=== PATIENT | male | born 1980 | race Caucasian/White ===

== ENCOUNTER 2019-10-22 12:52 | Emergency (ER) | payer OTHER ==
[~2019-10-22] VITALS: Ht 190.5 cm; Wt 100.2 kg
[2019-10-22] MEDS ORDERED: GLUCOSAMINE &1 EACH PO (13:26)
[2019-10-22] MEDS ORDERED: ALLOPURINOL 10100 M1 PO (13:26)
[2019-10-22 13:54] LABS: HEMATOCRIT 47.8 % (42.0-52.0); HEMOGLOBIN 16.4 gm/dL (14.0-18.0); MCH 31.1 pg (26.0-34.0); MCHC 34.4 g/dL (28.0-37.0); MCV 90.5 fL (80.0-100.0); MPV 8.2 fl. (7.2-11.1); NUCLEATED RBCS 0 /100WBC; PLATELET COUNT* 343 thou/uL (150-400); RBC 5.29 mil/uL (4.50-6.00); RDW-CV 13.5 % (10.5-14.5); WBC 18.1 thou/uL (4.0-11.0)
[2019-10-22 14:04] LABS: CALCIUM 10.4 mg/dL (8.5-10.1); CREATININE 2.5 mg/dL (0.6-1.3); POTASSIUM 4.2 mmol/L (3.5-5.1)
[2019-10-22 14:16] LABS: ALBUMIN 5.1 g/dL (3.4-5.0); TOTAL BILIRUBIN 2.5 mg/dL (<0.1-1.0); TOTAL PROTEIN 9.1 g/dL (6.4-8.2)
[2019-10-22 14:23] LABS: ABSOLUTE LYMPHOCYTES 0.5 thou/uL (0.8-5.3); ABSOLUTE MONOCYTES 0.7 thou/uL (0.0-1.2); ABSOLUTE NEUTROPHILS 16.8 thou/uL (1.6-8.1); PLATELET ESTIMATE ADEQUATE
[2019-10-22 14:46] LABS: URINE BLOOD TRACE (Negative); URINE CLARITY CLEAR; URINE COLOR YELLOW; URINE GLUCOSE-RANDOM NEGATIVE (Negative); URINE KETONES 2+ (Negative); URINE LEUKOCYTES-REFLEX NEGATIVE (Negative); URINE NITRITE-REFLEX NEGATIVE (Negative); URINE PROTEIN TRACE (Negative); URINE UROBILINOGEN 0.2 E.U./dl (0.2-1.0)
[2019-10-22 14:48] LABS: ICTOTEST (BILI CONFIRMATORY) Negative (Negative); URINE BILIRUBIN 1+ (Negative)
[2019-10-22 16:17] LABS: CALCIUM 9.2 mg/dL (8.5-10.1); POTASSIUM 4.6 mmol/L (3.5-5.1)
[2019-10-22 16:22] LABS: ALBUMIN 4.1 g/dL (3.4-5.0); TOTAL BILIRUBIN 1.9 mg/dL (<0.1-1.0); TOTAL PROTEIN 7.4 g/dL (6.4-8.2)
[2019-10-22] MEDS ORDERED: NAPROSYN500 MG PO (17:18)
[2019-10-22 17:36] VITALS: BP 112/76
--- NOTE | 2019-10-23 12:14 | EKG ---
[place] [address] ELECTROCARDIOGRAM REPORT Name: DANYELL SEO [facility]irlene#: [id number] Admission: 10/22/19 Attend Phys: Discharge: 10/22/19 Date of : 78 Date of Service: 10/22/19 1356 Report #: [id number] THIS REPORT FOR: //name// [facility] ED Test Date: 2019-10-22 Test Time: 13:56:14 Pat Name: DANYELL SEO Department: Room: Gender: Senior Counsel Commercial: [facility] : 1980 Requested By: Stephie Gutierrez Order Number: [id number] MD: Ponce Kim Measurements Intervals [place] Rate: 62 P: 22 ID: [id number] QRS: 48 QRSD: 96 T: 27 QT: 449 QTc: 456 Interpretive Statements Sinus rhythm Prolonged ID interval ST elevation suggests early repolarization No previous ECG available for comparison Electronically Signed On 10-23-2019 12:12:10 CDT by Ponce Kim [email or web address] <ELECTRONICALLY SIGNED> By: Ponce Kim MD, [facility] 10/23/19 1212 1356 1356 Ponce Kim MD, FACC /EPI
== END 2019-10-22 17:37 | disposition home or self-care (01) ==
LOC: M.ERS 12:52
PROVIDERS: Nurse Practitioner Family
DX: N17.8 Other acute kidney failure (principal)